=== PATIENT | female | born 1995 ===

== ENCOUNTER 2020-09-09 15:11 | Emergency (ER) | payer OTHER ==
[2020-09-09 15:22] VITALS: BP 115/74
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
== END 2020-09-09 15:35 | disposition home or self-care (01) ==
LOC: ED 15:11
DX: S16.1XXA Strain of muscle, fascia and tendon at neck level, initial encounter (principal); S39.012A Strain of muscle, fascia and tendon of lower back, initial encounter; Z79.899 Other long term (current) drug therapy; V49.49XA Driver injured in collision with other motor vehicles in traffic accident, initial encounter; Y92.410 Unspecified street and highway as the place of occurrence of the external cause; Y93.89 Activity, other specified; Y99.8 Other external cause status
CPT/HCPCS: 99282